=== PATIENT | male | born 1940 | race Caucasian/White ===

== ENCOUNTER 2017-03-13 08:58 | Observation (INO) | payer MEDICARE, BC ==
--- NOTE | 2017-03-13 09:33 | RAD ---
SINGLE VIEW OF THE CHEST: Comparison: 11-01-15 History: Chest pain. FINDINGS: Single view of the chest shows a normal sized cardiomediastinal silhouette. There is no evidence of consolidation, mass, or pleural effusion. The bones are unremarkable. IMPRESSION: No evidence of acute cardiopulmonary disease. POS: [facility]
[2017-03-13] MEDS ORDERED: Nitroglycerin 0.4 MG TAB (25 Tab Bottle) ONE (09:34)
[2017-03-13 09:37] LABS: Hematocrit 43.8 % (42.0-52.0); Mean Platelet Volume 7.8 fL (7.4-10.4); Red Blood Cell (RBC) Count 4.64 mill/uL (4.70-6.10); White Blood Cell (WBC) Count 5.1 thou/uL (4.8-10.8)
[2017-03-13 09:54] LABS: Band 1 % (5-11); Neutrophil 59 % (42-75); Reactive Lymphocytes 2 % (0-10)
[2017-03-13 10:06] LABS: ALT (SGPT) 14 U/L (8-55); AST (SGOT) 21 U/L (5-34); Alkaline Phosphatase 47 U/L (40-150); Anion Gap 11 mmol/L (10-20); BUN (Urea Nitrogen) 23 mg/dL (8.4-25.7); Bilirubin, Total 0.5 mg/dL (0.2-1.2); CK (CPK) 145 U/L (30-200); Calc. Creatinine Clearance 0 mL/min (70-130); Calcium 9.3 mg/dL (7.8-10.44); Carbon Dioxide 26 mmol/L (23-31); Chloride 105 mmol/L (98-107); Estimated GFR-MDRD 76; Globulin 3.2 g/dL (2.4-3.5); Lipase 43 U/L (8-78); Magnesium 2.3 mg/dL (1.6-2.6)
[2017-03-13 10:09] LABS: Troponin I Less than 0.010 ng/mL (< 0.028)
[2017-03-13] MEDS ORDERED: Ondansetron ODT 4 MG TAB SL PRN (12:20)
[2017-03-13] MEDS ORDERED: Ondansetron HCl/PF 4 MG/2 ML Vial IVP PRN ×2 (12:20→12:23)
[2017-03-13] MEDS ORDERED: Ondansetron ODT 4 MG TAB PO PRN (12:23)
[2017-03-13] MEDS ORDERED: Mag-Al 1200 mg/1200 mg/30 ML UDCUP PO PRN (12:23)
[2017-03-13] MEDS ORDERED: HYDROcodone/Acetaminophen 5/325 mg Tablet PO PRN (12:23)
[2017-03-13] MEDS ORDERED: Zolpidem Tartrate 5 MG TAB PO PRN (12:23)
[2017-03-13] MEDS ORDERED: Loperamide HCl 2 MG CAP PO PRN (12:23)
[2017-03-13] MEDS ORDERED: Senokot 8.6 MG TAB PO PRN (12:23)
[2017-03-13] MEDS ORDERED: Acetaminophen 325 MG TAB PO PRN (12:23)
[2017-03-13] MEDS ORDERED: Milk Of Magnesia 30 ML UDCUP PO PRN (12:23)
[2017-03-13 13:00] LABS: Troponin I Less than 0.010 ng/mL (< 0.028)
--- NOTE | 2017-03-13 13:00 | HP ---
PRIMARY CARE PHYSICIAN: Dr. Neto Fitzgerald. PRIMARY VETERINARY DENTIST: Dr. Maya. REASON FOR ADMISSION: Palpitations. 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 The patient reports that last night he was feeling palpitations. He was feeling his irregular heartbeat. The patient was able to monitor his pulse and he was noting that every fourth beat one pulse was dropping and that was appeared to be irregular to him. He was feeling funny sensation in his chest. He was feeling fullness in his chest. He denies any classic chest pain. He denies any dizziness or syncope. He denies any shortness of breath, nausea, vomiting, or diaphoresis. He slept last night and after that when he woke up this morning, still he was feeling palpitations and he was not feeling normal pulse that is why he went to coffee shop and he drank coffee, but he was not feeling better and that is why he came back to the emergency room for evaluation. Patient reports that he is pretty much very healthy. He had routine health checkup with the primary care physician; recently it was normal. He had a stress test about within a year that was normal. He is following Dr. Maya. The patient also reports that he does every day exercise at [employer] without any problem. He denies any exertional related chest pain, palpitation or shortness of breath. Initially in the emergency room, his electrocardiogram was normal, but when I was taking history and physical, at that time his eastern philosophy professor was showing extra beats with bigeminies and trigeminies. He denies any fever or chills. He denies any constipation or diarrhea. He denies any urinary tract infection symptoms. He denies any similar problem in the past. He denies any thyroid problem. He does have excessive coffee drinking habit. REVIEW OF SYSTEMS: Please see my HPI for pertinent positives and negatives. All other review of system and negative except as mentioned in the HPI. Constitutional: Weight loss or gain, ability to conduct usual activities. Skin: Rash, itching. Eyes: Double vision, pain. ENT/Mouth: Nose bleeding, neck stiffness, pain, tenderness. Cardiovascular: Palpitations, dyspnea on exertion, orthopnea. Respiratory: Shortness of breath, wheezing, cough, hemoptysis, fever or night sweats. Gastrointestinal: Poor appetite, abdominal pain, heartburn, nausea, vomiting, constipation, or diarrhea. Genitourinary: Urgency, frequency, dysuria, nocturia. Musculoskeletal: Pain, swelling. Neurologic/Psychiatric: Anxiety, depression. Allergy/Immunologic: Skin rash, bleeding tendency. PAST MEDICAL HISTORY: Hypertension, Dyslipidemia PAST SURGICAL HISTORY: Appendicectomy, hernia repair, tonsillectomy. PAST PSYCHIATRIC HISTORY: Reviewed and negative. SOCIAL HISTORY: Patient is retired ENT: He denies any alcohol abuse. He denies any drug abuse. He denies any smoking. He does have a habit of excessive coffee drinking. He is and lives at home. FAMILY HISTORY: No strong family history of premature coronary artery disease, stroke or cancer. ALLERGIES: No known drug allergies. CURRENT HOME MEDICATIONS: Aspirin 81 mg p.o. daily. Losartan/HCTA 100/12.5 1/2 tab bid, crestor 40 mg po daily EMERGENCY ROOM COURSE: Patient is given aspirin 324 mg and IV fluid. PHYSICAL EXAMINATION: VITAL SIGNS: On arrival, blood pressure 139/82, pulse 68, respiratory rate 16, temperature 98.4, saturation 97% on room air, weight 74.8 kilograms. GENERAL: Patient is currently alert, awake, in no acute distress. HEENT: Normocephalic, atraumatic. Eyes: Pupils round, reactive to light. Extraocular muscles intact. ENT: Oropharynx within normal limits. Moist mucous membranes. No oral lesions. No pharyngeal erythema. No exudate. NECK: Supple. Range of motion is normal. No meningeal signs of irritation. LUNGS: Clear to auscultation without any rhonchi or rales. CARDIAC: S1, S2 regular without any murmur. ABDOMEN: Soft, bowel sounds present, nontender, nondistended. No organomegaly , no mass, no suprapubic tenderness. BACK EXAMINATION: Unremarkable, no CVA tenderness. EXTREMITIES: Upper extremity range of motion is normal. Lower extremities: No edema. Good peripheral pulsation. SKIN: No skin rash. HEMATOLOGICAL SYSTEM: No lymphadenopathy. NEUROLOGIC: Nonfocal examination. The patient moves all 4 limbs. Plantar bilateral flexor. PSYCHIATRIC: Normal affect. SIGNIFICANT LABS AND IMAGINGS: CBC: WBC 5.1, hemoglobin 14.4, platelets 182, 000. BMP: Sodium 138, potassium 4.3, chloride 105, carbon dioxide 26, anion gap 11, BUN 23, creatinine 0.96, glucose 99, calcium 9.3, magnesium 2.3. LFT: AST 21, ALT 14, alkaline phosphatase 47, albumin 3.8, CK 145, CK-MB 3.0, troponin I less than 0.010. BNP 95.0, lipase 43. The initial EKG was showing normal sinus rhythm within normal limits. Chest x- ray is normal without any acute cardiopulmonary process. Telemetry strip monitoring was showing bigeminies, PVCs and atrial arrhythmia. ASSESSMENT AND PLAN/IMPRESSION: 1. Palpitation, this patient does have and telemetry-proven arrhythmia. At this point, patient will be kept on telemetry floor. We will obtain echocardiography. We will consult Cardiology for their opinion. Patient may benefit from beta-savannah therapy, but patient is resting pulse rate is low because of his athletic status. At this point, we will hold it for treatment plan to Cardiology. We will check thyroid function test with TSH. Patient is advised to avoid excessive caffeinated product. We will continue aspirin 81 mg p.o. daily and we will monitor on telemetry floor for any arrhythmias and will do serial cardiac enzymes x3 for further evaluation. Stress testing versus further evaluation will defer to Cardiology. 3. Deep venous thrombosis prophylaxis not needed because patient is low risk and we are expecting discharge in 24 hours. 4. Gastrointestinal prophylaxis, Pepcid 20 mg p.o. b.i.d. 5. Code status: The patient is FULL CODE. The patient's is surrogate decision maker. 6. Hypertension: Resume losartan/hctz 100/12.5 1/2 tab po bid 7. dyslipidemia: continue crestor 40 mg po hs Disposition plan based on clinical course, likely within 24 hours. Plan of care discussed with the patient and family member at bedside in the emergency room. MTDD
[2017-03-13 13:23] VITALS: BMI 25.2
[2017-03-13 15:32] VITALS: BP 130/70; TEMP 97.5
--- NOTE | 2017-03-13 15:43 | CON ---
DATE OF CONSULTATION: 03/13/2017 REASON FOR CONSULTATION: Palpitations. 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 He has a past medical history of hypertension and hyperlipidemia. He state s recently he developed palpitations. It happened acutely after lying from his left side towards hi s right side. The symptoms persisted overnight. He then proceeded to the emergency room with the celeste griffith. He does admit to high caffeine use. He states he drinks 6-7 cups of coffee per day in addition to d iet caffeinated drinks in the afternoon. No change in alcohol or other precipitating changes. PAST MEDICAL HISTORY: Hyperlipidemia, hypertension, previous tobacco abuse, TIA. ALLERGIES: None. HOME MEDICATIONS: Include aspirin, Hyzaar and Crestor. REVIEW OF SYSTEMS: Ten-point review of systems reviewed and as above, otherwise negative. PHYSICAL EXAMINATION: VITAL SIGNS: Blood pressure 117/60, pulse 72, temperature 98.8. GENERAL: Patient is a pleasant male who is in no acute distress. The patient appears his stated ag e. NEUROLOGIC: The patient is alert and oriented times 3 with no focal neurologic deficits. HEENT: Sclerae without icterus. Mouth has moist mucous membranes with normal pallor. NECK: No JVD. Carotid upstroke brisk. No bruits bilaterally. LUNGS: Clear to auscultation with unlabored respirations. BACK: No scoliosis or kyphosis. CARDIAC: Regular rate and rhythm with normal S1 and S2. No S3 or S4 noted. No significant rubs, m urmurs, thrills, or gallops noted throughout the precordium. PMI is not displaced. There is no par asternal heave. ABDOMEN: Soft, nontender, nondistended. No peritoneal signs present. No hepatosplenomegaly. No a bnormal striae. EXTREMITIES: 2+ femoral and 2+ dorsalis pedis pulses. No cyanosis, clubbing, or edema. SKIN: No gross abnormalities. PERTINENT LABS: CBC and base met within normal limits. Telemetry monitoring suggestive of PVCs with short run of SVT. IMPRESSION: 1. Premature ventricular contractions. 2. Palpitations. 3. Hypertension. RECOMMENDATIONS: Mr. Tilley does have symptomatic PVCs present. At this point, his labs appear to b e within normal limits. We would recommend an echo with Doppler. If his LVEF is normal, it would b e okay from my standpoint to discharge home with low dose beta-savannah therapy. I have also on awake counselor ed him on decreasing caffeine use and see if his symptoms improved. Otherwise, from my standpoint, I have no further recommendations.
[2017-03-13 15:56] LABS: Troponin I Less than 0.010 ng/mL (< 0.028)
--- NOTE | 2017-03-13 18:35 | DIS ---
DATE OF ADMISSION: 03/13/2017 DATE OF DISCHARGE: 03/13/2017 PRIMARY CARE PHYSICIAN: Dr. Neto Fitzgerald. PRIMARY ALIGNING INSPECTOR: Dr. Maya. PRIMARY DISCHARGE DIAGNOSIS: Palpitations due to premature ventricular contractions. SECONDARY DISCHARGE DIAGNOSES: Hypertension, dyslipidemia. PRIMARY PROCEDURE/OPERATION: None. RADIOLOGICAL INVESTIGATION: Echocardiography showed normal EF and diastolic dysfunction. Chest x-r ay was normal. SIGNIFICANT LABS: WBC 5.1, hemoglobin 14.4, platelets 182. Sodium 138, potassium 4.3, BUN 23, crea tinine 0.96, calcium 9.3, magnesium 2.3, AST 21, ALT 14, alkaline phosphatase 47, albumin 3.8. BNP 95. Cardiac enzymes negative x3. TSH 2.65. DISCHARGE MEDICATIONS: New medication: Toprol-XL 25 mg p.o. daily. Continue following medication: Aspirin 81 mg p.o. daily, losartan with hydrochlorothiazide 100/12.5 half tablet twice daily, Bola tor 40 mg p.o. at bedtime. CONTRAINDICATIONS: None. CODE STATUS: FULL CODE. INPATIENT CONSULTANTS: Dr. Maya was consulted while in hospital. TEST RESULTS PENDING ON DISCHARGE: None. ALLERGIES: No known drug allergies. DISCHARGE PLAN: Post hospital, the patient will follow up with primary care physician and Dr. Grant fletcher as instructed. HOSPITAL COURSE: A 76-year-old male who was admitted by me earlier today. Please see my H\T\P for further details. This patient mainly came to the emergency room with complaint of palpitation. The patient had palpitation last night. He was checking his pulse rate and it was irregular and he was feeling skipped beats. This morning, he was also having similar skipped beat and palpitation and t hat is why he came to emergency room for evaluation. Initially, echocardiogram in the emergency chichi m was normal, but when we are monitoring him on telemetry floor, we found bigeminus and trigeminus a nd PVCs. We did serial cardiac enzymes and ruled out acute coronary syndrome. We kept this patient in hospital. His TSH was normal. His telemetry subsequently got better. We gave him Toprol-XL wh ile in hospital. We did echocardiography, which showed diastolic dysfunction. Regarding his hypert ension, we continued losartan with hydrochlorothiazide half tablet twice daily. Regarding dyslipide swetha, we continued Crestor 40 mg p.o. at bedtime. New medication prescriptions at his pharmacy. Cardiology cleared him for discharge today. The patient was admitted and discharged on the same day.
[2017-03-13] MEDS ORDERED: Famotidine 20 MG TAB PO SCH (21:00)
== END 2017-03-13 18:18 | disposition home or self-care (01) ==
LOC: ERS 08:58 → 2SW 10:38
PROVIDERS: ADMIT Internal Medicine Nephrology; ATTEND Internal Medicine Nephrology
DX: I49.3 Ventricular premature depolarization (principal); I10 Essential (primary) hypertension; E78.5 Hyperlipidemia, unspecified; R00.8 Other abnormalities of heart beat; Z79.82 Long term (current) use of aspirin; Z79.899 Other long term (current) drug therapy; Z87.891 Personal history of nicotine dependence; Z86.73 Personal history of transient ischemic attack (TIA), and cerebral infarction without residual deficits
CPT/HCPCS: 36415; 71010; 80053; 82550; 82553; 83690; 83735; 83880; 84443; 84484; 85025; 93005; 93306; 96360

== ENCOUNTER → 2017-11-02 | Day surgery (SDC) | payer MEDICARE, BC ==
--- NOTE | 2017-11-02 15:48 | MRI ---
MRI OF THE ABDOMEN WITHOUT AND WITH CONTRAST: 11/02/17 COMPARISON: None. HISTORY: Prior left inguinal hernia repair. Partial small bowel obstruction seen at outside hospital CT scan. TECHNIQUE: Multiplanar and multisequence MR images were obtained of the abdomen without and with IV contrast. Ne gative oral contrast was administered. FINDINGS: No hernia is identified on the current examination. The small bowel is normal in caliber without sign ificant distention. There are a few scattered diverticula scattered throughout the colon. These are m ore prominent in the sigmoid colon. there is slight prominence of the left renal collecting system wh ich may represent an extrarenal pelvis as the calyces are not significantly dilated. No abdominal chucky nopathy is seen. No marrow signal abnormality is present. There is a large cyst in the liver measuring 4.8 cm in size. The adrenal glands, spleen, liver, and p ancreas are unremarkable. IMPRESSION: 1. No evidence of bowel obstruction. 2. No evidence of hernia. 3. Hepatic cysts. 4. Diverticulosis. 5. Slight prominence of the left renal collecting system may be secondary to mild hydronephrosis but there is no significant calyceal dilatation at this time and this could also represent an extrar enal pelvis. POS: [facility]
== END ==
LOC: MRI 13:23 → EDSTATUS 14:00
PROVIDERS: ATTEND Internal Medicine Gastroenterology
DX: K57.30 Diverticulosis of large intestine without perforation or abscess without bleeding (principal); K76.89 Other specified diseases of liver; Z79.82 Long term (current) use of aspirin; Z79.899 Other long term (current) drug therapy
CPT/HCPCS: 74183; J1610

== ENCOUNTER 2020-01-15 10:02 | Outpatient (CLI) | payer MEDICARE, BC ==
--- NOTE | 2020-01-15 15:51 | CT ---
CT of thechest: 01/15/2020 COMPARISON:12/17/2018 HISTORY:Reevaluate pulmonary nodules TECHNIQUE: Serial axial CT imaging at5 mm intervals from thelung apices through upper abdomen without contrast. Coronal and sagittal reformatted imaging obtained Findings:The lack of contrast media limits assessment of the imaged viscera, the vascular structures, and for lymphadenopathy. Limited assessment of the chest for lymphadenopathy appears grossly unremarkable. No pleural, pericar dial, or mediastinal fluid is seen. There is a 4-5 cm cyst within the left lobe of the liver. There is scattered atherosclerotic calcific ation of the aortic arch, the coronary arteries, and the upper abdominal aorta. There are prominent upper lobe emphysematous changes. Stable subcentimeter linear nodule in the left upper lobe noted on image 10. Stable clustered area of reticulonodular density noted within the anterior/medial aspect of the left upper lobe on image 20. Stable linear density and focal bronchiectatic change within the inferior lingula. There is a stable anterior left lower lobe nodule on image 30 superiorly measuring 5-6 mm. There is a spiculated mass in the superior segment of the left lower lobe on axial image 33 measuring 2.0 cm, which has grown when compared to the prior study at which time it measured approximately 1.4 cm. Stable subcentimeter ill-defined pulmonary nodules are noted elsewhere within the left lower lobe inc luding laterally on axial image 36 and posteriorly on axial image 37, not significantly changed. Stable inferior left lower lobe reticulonodular densities are noted. Stable ill-defined groundglass n odule within the left lower lobe on axial image 47 noted measuring in the 8 mm range. There has been slight interval increase in size of a left lower lobe nodule on image 43 measuring 5 mm. Stable lateral posterior right upper lobe nodules are seen on image 22 and image 20 measuring 7 and 4 mm respectively. Stable linear density with bronchiectatic change noted within the medial aspect of the right upper lobe and the inferior medial aspect of the right middle lobe. Stable right middle lobe nodule on axial image 40 measures 5 mm. There is a new area of nonspecific reticulonodular density involving the inferior aspect of the right middle lobe. This new area of ill-defined right middle lobe reticulonodular density includes a new 8 mm nodule on axial image 38. Within the right lower lobe there is a stable nodule on axial image 33 measuring 9 mm and on axial im age 38 measuring 6 mm. There is a posterior right lower lobe nodule measuring 1 cm on axial image 47, less conspicuous than on the prior study at which time it measured 1.2 cm. Review of the osseous structures demonstrates no worrisome lytic or blastic bone lesions. IMPRESSION: There are numerous bilateral pulmonary nodules. There are also areas of reticulonodular d ensity with associated interstitial thickening and bronchiectasis. The most concerning finding for malignancy is an enlarging mass within the superior segment of the left lower lobe on axial image 33 measuring up to 2 cm. New reticulonodular densities within the right middle lobe are likely infectious in nature but continued follow-up is advised. The majority of the additional pulmonary nod ules on this examination are stable. Please see above discussion.
== END 2020-01-15 10:03 | disposition home or self-care (01) ==
LOC: SCSCT 10:02
DX: A31.0 Pulmonary mycobacterial infection (principal); R91.8 Other nonspecific abnormal finding of lung field; J47.9 Bronchiectasis, uncomplicated; J98.4 Other disorders of lung
CPT/HCPCS: 71250

== ENCOUNTER 2023-03-05 09:57 | Outpatient (CLI) | payer MEDICARE, BC | END 2023-03-05 09:58 | disposition home or self-care (01) | LOC: ULT 09:57 | PROVIDERS: ATTEND Physician Assistant Medical | DX: R10.13 Epigastric pain (principal); Q44.6 Cystic disease of liver | CPT/HCPCS: 76705 ==